=== PATIENT | male | born 1950 | race American Indian/Alaskan Native ===

== ENCOUNTER 2016-07-06 11:11 | Outpatient (CLI) | payer MEDICARE ==
--- NOTE | 2016-07-06 12:13 | XRay Report ---
ROUTINE CHEST, TWO VIEWS: PA and lateral views demonstrate the heart and mediastinal contour to be of normal size and shape. The lungs are clear and fully expanded and the soft tissues and bony structures are normal. IMPRESSION: Normal study.
== END 2016-07-06 11:12 | disposition home or self-care (01) ==
LOC: XRAY 11:11
PROVIDERS: ATTEND Internal Medicine
DX: Z77.090 Contact with and (suspected) exposure to asbestos (principal)
CPT/HCPCS: 71020

== ENCOUNTER 2016-07-06 11:41 | Emergency (ER) | payer MEDICARE ==
[2016-07-06 11:49] VITALS: BP 145/95
--- NOTE | 2016-07-06 13:18 | Emergency Department Report ---
Chief Complaint: Urogenital-Male Stated Complaint: TESTICLES SWELLING Time Seen by Provider: 07/06/16 13:18 - HPI History of Present Illness: Patient here reports that his testicles are swollen and noticed this yesterday denies any pain. Denies any urinary burning frequency or urgency. He said he went down a little bit today. Said his primary care physician within exam on his testicles in the past and he said everything was normal. Denies any fever or chills. Denies any abdominal or back pain. - ROS Review of Systems: All systems are negative unless stated in HPI above. - Exam Vital Signs: Vital Signs 07/06/16 11:47 Temperature 98.2 F Pulse Rate 80 Respiratory 18 Rate Blood Pressure 145/95 O2 Sat by Pulse 100 Oximetry Physical Exam: General: This is a 65-year-old male well-nourished well-developed in no acute distress. Genitourinary male: Mild testicular swelling. No masses or nodules felt. No penile rash or lesions. Patient is not circumcised. Abdomen: Nontender to palpate in all quadrants. No guarding or rebound tenderness. Normal bowel sounds in all quadrants. MSE screening note: Focused history and physical exam performed. Due to findings the following was ordered:see [facility] ED Medical Decision Making - Medical Decision Making Medical decision making: Patient seen by provider in triage area. Appropriate protocol activated and patient to main ED to be seen by physician. ED Disposition for MSE Condition: Stable
[2016-07-06 13:37] LABS: Basophils % (Auto) 0.7 % (0.0-1.8); Eosinophils % (Auto) 2.4 % (0.0-4.3); Hematocrit 35.4 % (35.5-45.6); Hemoglobin 11.4 gm/dl (11.8-15.2); Mean Corpuscular HGB Conc 32 % (32-34); Mean Corpuscular Hemoglobin 27 pg (28-32); Mean Corpuscular Volume 84 fl (84-94); Platelet Count 312 K/mm3 (140-440); Red Blood Count 4.22 M/mm3 (3.65-5.03); Red Cell Distribution Width 14.9 % (13.2-15.2); White Blood Count 5.8 K/mm3 (4.5-11.0)
[2016-07-06 15:03] LABS: Bilirubin,Urine NEG (Negative); Blood,Urine NEG (Negative); Ketones,Urine TR mg/dL (Negative); Leukocyte Esterase,Urine NEG (Negative); Mucus,Urine 1+ /HPF; Nitrite,Urine NEG (Negative); Urobilinogen,Urine < 2.0 mg/dL (<2.0)
[2016-07-06 15:11] LABS: Alanine Aminotransferase 8 units/L (7-56); Albumin 4.1 g/dL (3.9-5); Albumin/Globulin Ratio 1.2 %; Alkaline Phosphatase 49 units/L (35-129); BUN/Creatinine Ratio 5.83; Bilirubin,Total 0.5 mg/dL (0.1-1.2); Blood Urea Nitrogen 7 mg/dL (9-20); Calcium 8.9 mg/dL (8.4-10.2); Carbon Dioxide 27 mmol/L (22-30); Glucose 99 mg/dL (75-100); Total Protein 7.6 g/dL (6.3-8.2)
--- NOTE | 2016-07-06 15:18 | Ultrasound Report ---
ULTRASOUND TESTICULAR COMPLETE WITH DOPPLER INDICATION: Testicular swelling. COMPARISON: None similar. FINDINGS: Longitudinal and transverse grayscale sonographic evaluation of the scrotum and its contents demonstrates obtainable bilateral testicular blood flow, though moderately diminished on the left compared to the right as on image 2. Testicular heterogeneity also noted, left more than right, though without suspicious intrinsic lesions. An approximately 8mm right intratesticular cyst posteroinferiorly though seen. Few tiny non-shadowing echogenicities in the left testicle may also represent microlithiasis as on images 52-53. Right testicle measures 5.2 x 2.4 x 2.7 cm while the left testicle is 3.8 x 2.8 x 2.7 cm. Small left hydrocele. Right epididymal head is 1 x 0.9 x 1.3 cm with at least two 5-6 mm cysts or spermatoceles. Left epididymal head measures 1 x 0.8 x 1.1 cm with a 0.4 cm cyst. CONCLUSION: 1. Small left hydrocele and mild testicular heterogeneity in this patient with diminished left testicular blood flow as compared to the right, as detailed above. Intermittent or partial/incomplete torsion difficult to entirely exclude in this setting, if such suspected clinically. Left testicle though sonographically not enlarged. 2. 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 Clinical/surgical correlation for above left testicular sonographic findings may also be obtained, if warranted. Thank you for the opportunity to participate in this patient's care.
[2016-07-06 15:54] LABS: Anion Gap 18 mmol/L; Chloride 101.5 mmol/L (98-107); Potassium 3.7 mmol/L (3.6-5.0); Sodium 143 mmol/L (137-145)
== END 2016-07-06 18:30 | disposition left against medical advice (07) ==
LOC: ED 11:41
DX: N50.89 Other specified disorders of the male genital organs (principal); Z53.21 Procedure and treatment not carried out due to patient leaving prior to being seen by health care provider
CPT/HCPCS: 36415; 80053; 81001; 85025; 93975

== ENCOUNTER 2018-09-08 11:34 | Outpatient (CLI) | payer MEDICARE ==
[2018-09-08 11:59] LABS: Hematocrit 38.1 % (35.5-45.6); Hemoglobin 12.7 gm/dl (11.8-15.2); Mean Corpuscular HGB Conc 33 % (32-34); Mean Corpuscular Volume 84 fl (84-94); Platelet Count 336 K/mm3 (140-440); Red Blood Count 4.53 M/mm3 (3.65-5.03); Red Cell Distribution Width 13.6 % (13.2-15.2)
[2018-09-08 12:08] LABS: Bilirubin,Urine NEG (Negative); Blood,Urine NEG (Negative); Color,Urine Yellow (Yellow); Mucus,Urine FEW /HPF; Protein,Urine <15 mg/dL mg/dL (Negative); WBC,Urine < 1.0 /HPF (0.0-6.0)
[2018-09-08 12:20] LABS: Calcium 9.2 mg/dL (8.4-10.2)
[2018-09-08 12:39] LABS: Creatinine,Urine 198.5 mg/dL (0.1-20.0); Protein/Creatinine Ratio,Urine 0.08
== END 2018-09-08 11:35 | disposition home or self-care (01) ==
LOC: LAB 11:34
PROVIDERS: ATTEND Internal Medicine
DX: I12.9 Hypertensive chronic kidney disease with stage 1 through stage 4 chronic kidney disease, or unspecified chronic kidney disease (principal); N18.9 Chronic kidney disease, unspecified
CPT/HCPCS: 36415; 80048; 81001; 82570; 84156; 85027

== ENCOUNTER 2019-01-12 11:37 | Outpatient (CLI) | payer MEDICARE ==
[2019-01-12 11:59] LABS: Hematocrit 38.6 % (35.5-45.6); Hemoglobin 12.6 gm/dl (11.8-15.2); Mean Corpuscular HGB Conc 33 % (32-34); Mean Corpuscular Volume 85 fl (84-94); Platelet Count 311 K/mm3 (140-440); Red Blood Count 4.54 M/mm3 (3.65-5.03); Red Cell Distribution Width 13.4 % (13.2-15.2)
[2019-01-12 12:14] LABS: Creatinine,Urine 238.6 mg/dL (0.1-20.0); Protein/Creatinine Ratio,Urine 0.07
[2019-01-12 12:17] LABS: Bilirubin,Urine NEG (Negative); Blood,Urine NEG (Negative); Color,Urine Yellow (Yellow); Protein,Urine <15 mg/dL mg/dL (Negative); WBC,Urine < 1.0 /HPF (0.0-6.0)
[2019-01-12 12:24] LABS: Calcium 9.2 mg/dL (8.4-10.2)
== END 2019-01-12 11:38 | disposition home or self-care (01) ==
LOC: LAB 11:37
PROVIDERS: ATTEND Internal Medicine Nephrology
DX: N18.3 Chronic kidney disease, stage 3 (moderate) (principal)
CPT/HCPCS: 36415; 80048; 81001; 82570; 84156; 85027

== ENCOUNTER 2019-04-10 11:04 | Outpatient (CLI) | payer MEDICARE ==
[2019-04-10 11:35] LABS: Hematocrit 40.8 % (35.5-45.6); Mean Corpuscular HGB Conc 32 % (32-34); Mean Corpuscular Volume 85 fl (84-94); Platelet Count 288 K/mm3 (140-440); Red Blood Count 4.79 M/mm3 (3.65-5.03); Red Cell Distribution Width 14.2 % (13.2-15.2)
[2019-04-10 11:44] LABS: Bilirubin,Urine NEG (Negative); Blood,Urine NEG (Negative); Color,Urine Yellow (Yellow); Mucus,Urine FEW /HPF; Protein,Urine <15 mg/dL mg/dL (Negative); WBC,Urine < 1.0 /HPF (0.0-6.0)
[2019-04-10 11:54] LABS: Calcium 8.7 mg/dL (8.4-10.2)
[2019-04-10 12:43] LABS: Creatinine,Urine 292.8 mg/dL (0.1-20.0); Protein/Creatinine Ratio,Urine 0.1
== END 2019-04-10 11:05 | disposition home or self-care (01) ==
LOC: LAB 11:04
PROVIDERS: ATTEND Internal Medicine Nephrology
DX: N18.3 Chronic kidney disease, stage 3 (moderate) (principal)
CPT/HCPCS: 36415; 80048; 81001; 82570; 84156; 85027

== ENCOUNTER 2020-07-19 10:39 | Outpatient (CLI) | payer MEDICARE ==
[2020-07-19 11:11] LABS: Basophils % (Auto) 0.6 % (0.0-1.8); Eosinophils # (Auto) 0.2 K/mm3 (0.0-0.4); Eosinophils % (Auto) 2.4 % (0.0-4.3); Hematocrit 39.3 % (35.5-45.6); Hemoglobin 12.8 gm/dl (11.8-15.2); Lymphocytes # (Auto) 1.9 K/mm3 (1.2-5.4); Lymphocytes % (Auto) 30.5 % (13.4-35.0); Mean Corpuscular HGB Conc 33 % (32-34); Mean Corpuscular Volume 88 fl (84-94); Monocytes % (Auto) 15.5 % (0.0-7.3); Platelet Count 334 K/mm3 (140-440); Red Blood Count 4.49 M/mm3 (3.65-5.03)
[2020-07-19 11:14] LABS: Bilirubin,Urine SM (Negative); Blood,Urine NEG (Negative); Color,Urine Yellow (Yellow); Mucus,Urine FEW /HPF; RBC,Urine < 1.0 /HPF (0.0-6.0)
[2020-07-19 11:21] LABS: Ictotest,Urine Negative (Negative)
[2020-07-19 11:30] LABS: Calcium 8.7 mg/dL (8.4-10.2)
[2020-07-19 13:36] LABS: Creatinine,Urine 419.9 mg/dL (0.1-20.0); Protein/Creatinine Ratio,Urine 0.17
== END 2020-07-19 10:40 | disposition home or self-care (01) ==
LOC: LAB 10:39
PROVIDERS: ATTEND Internal Medicine Nephrology
DX: N18.30 Chronic kidney disease, stage 3 unspecified (principal); N25.81 Secondary hyperparathyroidism of renal origin
CPT/HCPCS: 36415; 80048; 81001; 82306; 82570; 83970; 84100; 84156; 85025

== ENCOUNTER 2021-02-08 10:09 | Outpatient (CLI) | payer MEDICARE ==
[2021-02-08 10:44] LABS: Eosinophils # (Auto) 0.2 K/mm3 (0.0-0.4); Eosinophils % (Auto) 4.4 % (0.0-4.3); Hemoglobin 12.8 gm/dl (11.8-15.2); Lymphocytes # (Auto) 1.8 K/mm3 (1.2-5.4); Lymphocytes % (Auto) 36.9 % (13.4-35.0); Mean Corpuscular HGB Conc 34 % (32-34); Mean Corpuscular Volume 86 fl (84-94); Monocytes # (Auto) 0.7 K/mm3 (0.0-0.8); Monocytes % (Auto) 14.2 % (0.0-7.3); Platelet Count 336 K/mm3 (140-440); Red Blood Count 4.43 M/mm3 (3.65-5.03); Red Cell Distribution Width 13.8 % (13.2-15.2)
[2021-02-08 11:07] LABS: Calcium 9.2 mg/dL (8.4-10.2)
[2021-02-08 11:49] LABS: Bilirubin,Urine NEG (Negative); Blood,Urine NEG (Negative); Color,Urine Yellow (Yellow); Mucus,Urine FEW /HPF; Protein,Urine <15 mg/dL mg/dL (Negative)
[2021-02-13 13:45] LABS: Vitamin D, 25-OH, D2 <4 ng/mL
== END 2021-02-08 10:10 | disposition home or self-care (01) ==
LOC: LAB 10:09
PROVIDERS: ATTEND Internal Medicine Nephrology
DX: N18.30 Chronic kidney disease, stage 3 unspecified (principal); N25.81 Secondary hyperparathyroidism of renal origin
CPT/HCPCS: 36415; 80048; 81001; 82306; 85025

== ENCOUNTER 2021-07-12 10:36 | Outpatient (CLI) | payer MEDICARE ==
[2021-07-12 11:10] LABS: Bilirubin,Urine NEG (Negative); Blood,Urine NEG (Negative); Color,Urine Yellow (Yellow); Hyaline Casts,Urine 2 /LPF; Mucus,Urine FEW /HPF; Protein,Urine <15 mg/dL mg/dL (Negative)
[2021-07-12 11:26] LABS: Basophils % (Auto) 0.7 % (0.0-1.8); Eosinophils # (Auto) 0.4 K/mm3 (0.0-0.4); Eosinophils % (Auto) 7.4 % (0.0-4.3); Lymphocytes # (Auto) 2.1 K/mm3 (1.2-5.4); Lymphocytes % (Auto) 39.3 % (13.4-35.0); Mean Corpuscular HGB Conc 30 % (32-34); Mean Corpuscular Volume 86 fl (84-94); Monocytes # (Auto) 0.8 K/mm3 (0.0-0.8); Monocytes % (Auto) 15.7 % (0.0-7.3); Platelet Count 394 K/mm3 (140-440); Red Blood Count 4.52 M/mm3 (3.65-5.03); Red Cell Distribution Width 13.9 % (13.2-15.2)
[2021-07-12 11:41] LABS: Hemoglobin 11.7 gm/dl (11.8-15.2)
[2021-07-12 11:42] LABS: Hematocrit 38.8 % (35.5-45.6)
[2021-07-12 11:46] LABS: Calcium 9.1 mg/dL (8.4-10.2)
[2021-07-12 12:53] LABS: Creatinine,Urine 270.3 mg/dL (0.1-20.0); Protein/Creatinine Ratio,Urine 0.1
== END 2021-07-12 10:37 | disposition home or self-care (01) ==
LOC: LAB 10:36
PROVIDERS: ATTEND Internal Medicine Nephrology
DX: N18.30 Chronic kidney disease, stage 3 unspecified (principal); N25.81 Secondary hyperparathyroidism of renal origin
CPT/HCPCS: 36415; 80048; 81001; 82570; 84100; 84156; 85025

== ENCOUNTER 2021-11-29 18:49 | Emergency (ER) | payer MEDICARE ==
[2021-11-29 20:00] VITALS: BP 104/55
== END 2021-11-30 00:10 | disposition left against medical advice (07) ==
LOC: ED 18:49
DX: R10.9 Unspecified abdominal pain (principal); Z53.21 Procedure and treatment not carried out due to patient leaving prior to being seen by health care provider

== ENCOUNTER 2021-12-25 07:43 | Outpatient (CLI) | payer MEDICARE ==
--- NOTE | 2021-12-25 09:36 | Ultrasound Report ---
ULTRASOUND ABDOMEN, COMPLETE INDICATION: R10.9 UNSPECIFIED ABDOMINAL PAIN. COMPARISON: No relevant prior imaging study available. FINDINGS: Pancreas: No significant abnormality. Abdominal Aorta: Normal size. IVC: No significant abnormality. Liver: The liver measures 15 cm in length. No significant abnormality. Normal hepatopedal blood flow in the main portal vein. Gallbladder: No significant abnormality. Bile ducts: No significant abnormality. Common bile duct measures 4 mm. Kidneys: Right: 10.2 cm in length. No significant abnormality. Left: 10.1 cm in length. Simple cy st measuring 1.3 cm in the midpole and another measuring 1.6 cm in the upper pole. Spleen: No significant abnormality. Free fluid: None. Additional Findings: None. IMPRESSION: 1. No acute sonographic abnormality of the abdomen. 2. Simple left renal cyst. Signer Name: Rafael Bonilla MD Signed: 12/25/2021 9:31 AM Workstation Name: [id number]
== END 2021-12-25 07:44 | disposition home or self-care (01) ==
LOC: US 07:43
PROVIDERS: ATTEND Nurse Practitioner Acute Care
DX: N28.1 Cyst of kidney, acquired (principal); R10.9 Unspecified abdominal pain
CPT/HCPCS: 76700

== ENCOUNTER 2022-01-11 09:48 | Outpatient (CLI) | payer MEDICARE ==
[2022-01-11 10:18] LABS: Bilirubin,Urine NEG (Negative); Blood,Urine NEG (Negative); Color,Urine Yellow (Yellow)
[2022-01-11 10:21] LABS: RBC,Urine < 1.0 /HPF (0.0-6.0)
[2022-01-11 10:41] LABS: Bacteria,Urine 1+ /HPF (Negative); Hyaline Casts,Urine 1 /LPF; Mucus,Urine FEW /HPF
[2022-01-11 10:48] LABS: Calcium 8.6 mg/dL (8.4-10.2)
[2022-01-11 11:01] LABS: Basophils # (Auto) 0.1 K/mm3 (0.0-0.1); Basophils % (Auto) 0.9 % (0.0-1.8); Eosinophils # (Auto) 0.3 K/mm3 (0.0-0.4); Eosinophils % (Auto) 4.8 % (0.0-4.3); Hematocrit 27.4 % (35.5-45.6); Hemoglobin 8.4 gm/dl (11.8-15.2); Lymphocytes # (Auto) 1.7 K/mm3 (1.2-5.4); Lymphocytes % (Auto) 26.1 % (13.4-35.0); Mean Corpuscular HGB Conc 31 % (32-34); Mean Corpuscular Volume 79 fl (84-94); Monocytes # (Auto) 0.9 K/mm3 (0.0-0.8); Monocytes % (Auto) 13.1 % (0.0-7.3); Platelet Count 467 K/mm3 (140-440); Red Blood Count 3.49 M/mm3 (3.65-5.03); Red Cell Distribution Width 14.7 % (13.2-15.2)
[2022-01-11 12:21] LABS: Creatinine,Urine 419.3 mg/dL (0.1-20.0); Protein/Creatinine Ratio,Urine 0.13
== END 2022-01-11 09:49 | disposition home or self-care (01) ==
LOC: LAB 09:48
PROVIDERS: ATTEND Internal Medicine Nephrology
DX: N18.30 Chronic kidney disease, stage 3 unspecified (principal); N25.81 Secondary hyperparathyroidism of renal origin
CPT/HCPCS: 36415; 80048; 81001; 82570; 84100; 84156; 85025